=== PATIENT | female | born 1960 | race Caucasian/White ===

== ENCOUNTER → 2017-09-11 | Outpatient (CLI) | payer OTHER | LOC: FIMAGING 10:48 | PROVIDERS: ATTEND Family Medicine | DX: M53.86 Other specified dorsopathies, lumbar region (principal); M51.36 Other intervertebral disc degeneration, lumbar region; S22.060D Wedge compression fracture of T7-T8 vertebra, subsequent encounter for fracture with routine healing; M53.84 Other specified dorsopathies, thoracic region ==

== ENCOUNTER 2018-03-15 12:07 | Day surgery (SDC) | payer OTHER ==
[2018-03-15] MEDS ORDERED: NALOXONE HCL 0.4 MG/ML INJ IVP PRN (13:19)
[2018-03-15] MEDS ORDERED: FLUMAZENIL 0.5 MG/5 ML MDV IVP PRN (13:19)
[2018-03-15] MEDS ORDERED: fentaNYL 100 MCG/2 ML INJ IVP PRN (13:19)
[2018-03-15] MEDS ORDERED: MIDAZOLAM 2 MG/2 ML VIAL IVP PRN (13:19)
[2018-03-15] MEDS ORDERED: NS 1,000 ML IV SCH (13:30)
--- NOTE | 2018-03-15 14:12 | PDPROPOC ---
Sedation Plan of Care Sedation Plan of Care: vital signs stable, mental status noted, patient educated of risks, benefits, alternatives, patient can tolerate sedation ASA Classification: ASA 2 Planned drugs: fentanyl, midazolam Mallampati Score: Class 1 Mallampati Reference Image: Patient passed 3-3-2 rule?: Yes
--- NOTE | 2018-03-15 14:17 | PDGENHP ---
History & Physical Chief Complaint: NECK PAIN, ARM RADICULOPATHY. History of Present Illness: RECENTLY ADMITTED FOR RUE PAIN AND NECK PAIN. HAS SPINAL STIMULATOR. Pertinent Past, Social, Family History: PRIOR INJECTIONS, PAIN STIMULATOR, LEFT KNEE ACL, LEFT HIP DEBRIDEMENT. Relevant Physical Exam: 2-3/10 UP TO 1010 NECK AND ARM PAIN. POOR RT HAND FUNCTION. Cardiorespiratory Assessment: RRR, CTA
[2018-03-15] MEDS ORDERED: TRIAMCINOLONE ACETONIDE 200 MG/5 ML MDV IM ONE (14:39)
[2018-03-15] MEDS ORDERED: ONDANSETRON 4 MG/2 ML VIAL IVP PRN (15:07)
--- NOTE | 2018-03-15 15:08 | PDRADPN ---
Radiology Procedure Note Date of Procedure: 03/15/18 Radiologist: Diana Martinez Anesthesia: IV Sedation Pre-op Diagnosis: NECK AND ARM PAIN Post-op Diagnosis: SAME Indication: PAIN Procedure: C7-T1 NILO Inf/Abcess present in the surg proc area at time of surgery?: No
[2018-03-15 15:29] VITALS: BP 116/83
== END 2018-03-15 16:12 | disposition home or self-care (01) ==
LOC: FIMAGING 12:07
PROVIDERS: ATTEND Nurse Practitioner Family
PROC: 3E0R33Z Introduction of Anti-inflammatory into Spinal Canal, Percutaneous Approach (ICD-10-PCS; principal; 2018-03-15 15:02)
DX: M54.12 Radiculopathy, cervical region (principal)
CPT/HCPCS: J2250; J2310; J3010; J3301

== ENCOUNTER → 2018-06-15 | Outpatient (CLI) | payer OTHER | LOC: FIMAGING 13:14 | PROVIDERS: ATTEND Family Medicine | DX: N95.0 Postmenopausal bleeding (principal); Z79.890 Hormone replacement therapy; D68.51 Activated protein C resistance ==